=== PATIENT | male | born 2005 | race Asian ===

== ENCOUNTER 2024-10-30 13:37 | Emergency (ER) | payer BC, SELFPAY ==
[2024-10-30 13:49] VITALS: BP 126/77; PULSE 55; RESP 20; TEMP 37.1; O2SAT 100; BMI 30.3
[2024-10-30 14:02] LABS: Microscopic, Urine URINE MICROSCOPIC (MICROSCOPIC)
--- OUTSIDE RECORDS SUMMARY | 2024-10-30 14:11 | XMS_ITS | Clinical Summary ---
[facility] Organization [facility] Address [address] [place] [address] Care Team Providers Care Manager In Training Name Role Phone Tracee Rene MD Primary Care Provider Unava ilable Social History Tobacco Use Types Packs/Day Years Used Date Smoking Tobacco: Never Assessed Abuse Screen Answer Date Recorded Unsafe at Home or Work/School Not on file Feels Threatened by Someone? Not on file 11/2022 Does Anyone Keep You from Co ntacting Others or Doint Things Outside the Home? Not on file 12/17/2022 Physical Sign of Abuse Present Not on file 1 Housing Stability Answer Date Recorded Current Living Arrangements Not on file 11/2022 Potentially Unsafe Housing Conditions Not on arlene e 12/17/2022 Family and Community Support Answer Khalif e Recorded Help with Day-to-Day Activities Not on file 12/17/2022 Lonely or Isolated Not on file 12/17/2022 Employment Answer Date Recorded Do you want help finding or keeping work or a mary jo b? Not on file 12/17/2022 Disabilities Answer Date Recorded Concentrating, Remembering, or Making Decisions Difficulty Not on file 12/17/2022 Doing Errands Independently Difficulty Not on fi le 12/17/2022 Education Answer Date Recorded Help with school or training? Not on file Preferred Language Not on file 12/17/2022 Sex and Gender Information Value Date Recorded Sex Assigned at Not on file Legal Sex Male 12:09 PM EDT Gender Identity Not on file Sexual Orientation Not on file Plan of Treatment Health Maintenance Due Date Last Done Comments ANNUAL PHYSICAL 2003 HEPATITIS C SCREENING 2003 HPV VACCINES (1 - Male 3-dos e series) 05/19/2018 MENINGOCOCCAL B VACCINE (1 o f 2 - Standard) 2019 TDAP/TD VACCINES (1 - Tdap) 05/19/2022 COVID-19 Vaccine (1 - 2023-2 5 season) 2023 INFLUENZA VACCINE 12/09/2024 MENINGOCOCCAL VACCINE Aged Out No christine erick eligible based on patient's age to complete this topic Pneumococcal Vaccine 0-49 Aged Out No longer eligible based on patient's age to complete this topic Insurance PPO Care Teams Manager In Training Relationship Specialty Start Date End Date Tracee Rene MD PCP - General Pediatrics 05/21/17
--- OUTSIDE RECORDS SUMMARY | 2024-10-30 14:11 | XMS_ITS | Referral Summary ---
Author Organization [employer] ([place], [place], [place], [place]) Address [address] [place] [address] Care Team Providers Care Test Grader Name Role Phone Afshin Quinn MD Primary Care Provider Allergies No known active allergies Medications No known medications Social History Tobacco Use Types Packs/Day Years Used Date Smoking Tobacco: Never Passive Smoke Exposure: Never Smokeless Tobacco: Never Tobacco Cessation:Counseling Given: Not Answered Alcohol Use Standard Drinks/Week Comments Never 0 (1 standard drink = 0.6 oz pur e alcohol) Family and Community Support Answer Khalif e Recorded Help with Day to Day Activities Not on file 11/25/2023 Feeling Lonely or Isolated Not on file 11/24 Educational Attainment Answer Date Mario rded Speak language other than Malawian at home Not on file 11/25/2023 Want help with school or training Not on file 11/25/2023 Substance Use Answer Date Recorded Used prescription meds for non-medical reasons N ot on file 11/25/2023 Used illegal drugs past 12 months Not on file 11/25/2023 Sex and Gender Information Value Date Recorded Sex Assigned at Not on file Legal Sex Male 7:51 PM CDT Gender Identity Not on file Sexual Orientation Not on file Last Filed Vital Signs Vital Sign Reading Time Taken Comments Blood Pressure 120/80 07/17/2024 2:05 PM EDT Pulse 66 07/17/2024 12:01 PM EDT Temperature 36.7 C (98 F) 07/17/2024 12:01 PM EDT Respiratory Rate 16 07/17/2024 2:05 PM EDT Oxygen Saturation 98% 07/17/2024 2:05 PM EDT Inhaled Oxygen Concentration - - Weight 106.6 kg (235 lb) 07/17/2024 12:01 PM EDT Height 182.9 cm (6') 07/17/2024 12:01 PM EDT Body Mass Index 31.87 07/17/2024 12:01 PM EDT Plan of Treatment Not on file Insurance BLUE CROSS/BLUE SHIELD Care Teams Test Grader Relationship Specialty Start Date End Date Afshin Quinn MD [address] [facility] [address] [place] [phone] PCP - General Family Medicine 07/17/24
--- OUTSIDE RECORDS SUMMARY | 2024-10-30 14:11 | XMS_ITS | Clinical Summary ---
Author Organization [employer] ([place], [place], [place], [place]) Address [address] [place] [address] Care Team Providers Care Provider Relations Rep Name Role Phone Afshin Quinn MD Primary [...] Date Mario rded Speak language other than Albanian at home Not on file 11/25/2023 Want [...] 07/17/2024 12:01 PM EDT Plan of Treatment Health Maintenance Due Date Last Done Comments Depression Screening (12+) 2015 HIV Screening 05/19/2018 Meningococcal B Vaccine (1 o f 2 - Standard) 2019 Hepatitis C Screening 05/19/2021 Pneumococcal Vaccine: 0-49 Y ears (1 of 2 - PCV) 05/19/2022 Lipid Panel 2023 COVID-19 VACCINE (4 - 2023- season) 2023 04/22/2023, 08/11/2020, 07/17/2020 Influenza Vaccine (#1) 2024 Tobacco Cessation Counseling and Screening (12+) 07/17/2025 07/17/2024 DTAP/TDAP/TD VACCINES (2 - T d or Tdap) 04/22/2033 04/22/2023 Insurance BLUE CROSS/BLUE SHIELD Care Teams Provider Relations Rep Relationship Specialty Start Date End Date Afshin Quinn MD [address] [facility] [address] [place] [address] PCP - General Family Medicine 07/17/24
[2024-10-30 14:14] LABS: Bilirubin,Urine Negative (Negative); Color,Urine YELLOW (Yellow); Glucose,Urine (UA) Negative (Negative); Ketones,Urine TRACE (Negative); Leukocyte Esterase,Urine Negative (Negative); PH,Urine 7.5 (5.0-8.5); Protein,Urine Negative (Negative); Specific Gravity, Urine 1.020 (1.005-1.030); Urobilinogen,Urine 0.2 EU/dl (0.2)
[2024-10-30 15:06] LABS: WBC,Urine Occasional #/hpf (0-3)
[2024-10-30 15:07] LABS: Bacteria,Urine Trace /lpf; Squamous Epithelial Cell,Urine Occasional #/hpf (0-5)
[2024-10-30 15:23] VITALS: BP 0/0; PULSE 0; RESP 0; TEMP -17.7; TEMP 0
== END 2024-10-30 15:20 | disposition left against medical advice (07) ==
PROVIDERS: Student in an Organized Health Care Education/Training Program; Emergency Provider Student in an Organized Health Care Education/Training Program
DX: Z53.21 Procedure and treatment not carried out due to patient leaving prior to being seen by health care provider (principal)
CPT/HCPCS: 81001; 99281; 99283